=== PATIENT | female | born 1980 | race African-American/Black ===

== ENCOUNTER 2020-07-14 17:18 | Emergency (ER) | payer MEDICAID ==
[~2020-07-14] VITALS: Ht 172.7 cm; Wt 100.0 kg
[2020-07-14 17:29] VITALS: BP 142/91
[2020-07-14] MEDS ORDERED: IBUPROFEN 600MG TABLET PO STA (18:25)
== END 2020-07-14 20:54 | disposition home or self-care (01) ==
LOC: ER 17:18
DX: S20.214A Contusion of middle front wall of thorax, initial encounter (principal); V49.40XA Driver injured in collision with unspecified motor vehicles in traffic accident, initial encounter; Y93.89 Activity, other specified; Y92.89 Other specified places as the place of occurrence of the external cause; Y99.8 Other external cause status
CPT/HCPCS: 71045; 81025; 93005; 99283